=== PATIENT | female | born 1945 | race African-American/Black ===

== ENCOUNTER 2022-10-15 11:25 | Inpatient (IN) | payer OTHER ==
[2022-10-15 12:08] VITALS: BMI 34.3
[2022-10-15] MEDS ORDERED: ACETAMINOPHEN 500 MG TABLET (FP) PO ONE (13:04)
[2022-10-15] MEDS ORDERED: ACETAMINOPHEN 500 MG TABLET (FP) ONE (13:09)
[2022-10-15 13:17] LABS: HEMATOCRIT 24.3 % (32.4-45.2); HEMOGLOBIN 8.1 GM/dL (10.7-15.3); MCHC 33.5 g/dl (32.0-36.0); MEAN CELL VOLUME 98.6 fl (80-96); MEAN PLT VOLUME 8.1 fl (7.5-11.1); PLATELET COUNT 176 10^3/uL (134-434); RBC 2.46 M/mm3 (3.60-5.2); WHITE BLOOD COUNT 4.4 K/mm3 (4.0-10.0)
[2022-10-15] MEDS ORDERED: ACETAMINOPHEN 1000 MG/100 ML BAG IVPB ONE ×2 (13:20→18:57)
[2022-10-15 13:27] LABS: INR 0.97 (0.83-1.09); PROTHROMBIN TIME (PATIENT) 11.2 SEC (9.7-13.0)
[2022-10-15 13:29] LABS: ACTIVATED PTT 30.4 SECONDS (25.2-36.5)
[2022-10-15] MEDS ORDERED: ACETAMINOPHEN INJECTION 100 ML IVPB ONE ×2 (13:33→14:09)
[2022-10-15 13:42] LABS: BLOOD UREA NITROGEN 24.9 mg/dL (7-18); CALCIUM 8.2 mg/dL (8.5-10.1); MAGNESIUM 1.8 mg/dL (1.8-2.4)
[2022-10-15 13:45] LABS: CREATININE 3.4 mg/dL (0.55-1.3)
[2022-10-15 13:47] LABS: BILIRUBIN,TOTAL 0.4 mg/dL (0.2-1); TOT PROT 6.3 g/dl (6.4-8.2)
[2022-10-15] MEDS ORDERED: morphine CARPU-JECT 2 MG/1 ML DISP.SYRIN IVPUSH ONE (17:07)
[2022-10-15] MEDS ORDERED: NAPH,MB-DB/K PH,MBDB POWDER PACKET PO ONE (18:16)
[2022-10-15] MEDS ORDERED: NAPH,MB-DB/K PH,MBDB POWDER PACKET ONE (18:34)
[2022-10-15] MEDS ORDERED: INSULIN (LEVEMIR) 100 UNITS/ML UNITS SQ SCH (22:00)
[2022-10-15] MEDS ORDERED: APIXABAN 5 MG TABLET ONE (23:42)
[2022-10-15] MEDS ORDERED: ATORVASTATIN CA 40 MG TABLET (FP) ONE (23:42)
[2022-10-15] MEDS ORDERED: INSULIN (LEVEMIR) 100 UNITS/ML UNITS SQ ONE (23:43)
[2022-10-15] MEDS: INSULIN SLIDING SCALE (NOVOLOG) 1 VIAL SQ SCH (23:53)
[2022-10-15] MEDS: ATORVASTATIN CA 80 MG TABLET (FP) PO SCH (23:53)
[2022-10-16] MEDS ORDERED: ACETAMINOPHEN INJECTION 100 ML IVPB ONE (00:15)
[2022-10-16] MEDS: APIXABAN 5 MG TABLET PO SCH ×3 (00:40→22:22)
[2022-10-16 07:26] LABS: BASO % 0.8 % (0-2.0); EOS % 1.8 % (0-4.5); HEMOGLOBIN 8.6 GM/dL (10.7-15.3); LYMPH % 12.2 % (8-40); MCH 31.6 pg (25.7-33.7); MCHC 31.8 g/dl (32.0-36.0); MEAN CELL VOLUME 99.3 fl (80-96); MEAN PLT VOLUME 8.3 fl (7.5-11.1); MONO % 13.1 % (3.8-10.2); NEUT % 72.1 % (42.8-82.8); PLATELET COUNT 170 10^3/uL (134-434); RBC 2.72 M/mm3 (3.60-5.2); RDW 15.2 % (11.6-15.6); WHITE BLOOD COUNT 3.8 K/mm3 (4.0-10.0)
[2022-10-16 07:56] LABS: ALBUMIN 2.8 g/dl (3.4-5.0); BLOOD UREA NITROGEN 35.5 mg/dL (7-18); CALCIUM 7.9 mg/dL (8.5-10.1)
[2022-10-16 07:57] LABS: MAGNESIUM 1.8 mg/dL (1.8-2.4)
[2022-10-16 07:59] LABS: CREATININE 4.9 mg/dL (0.55-1.3); PHOSPHOROUS 4.4 mg/dL (2.5-4.9)
[2022-10-16 08:00] LABS: BILIRUBIN,TOTAL 0.4 mg/dL (0.2-1); TOT PROT 5.9 g/dl (6.4-8.2)
[2022-10-16] MEDS: INSULIN SLIDING SCALE (NOVOLOG) 1 VIAL SQ SCH ×4 (08:58→22:22)
[2022-10-16] MEDS ORDERED: ASPIRIN 81 MG CHEWABLE TABLETS ONE (09:47)
[2022-10-16] MEDS ORDERED: APIXABAN 5 MG TABLET ONE (09:47)
[2022-10-16] MEDS ORDERED: ASPIRIN 81 MG CHEWABLE TABLETS PO SCH (10:00)
[2022-10-16] MEDS ORDERED: ACETAMINOPHEN 1000 MG/100 ML BAG IVPB PRN (10:07)
[2022-10-16] MEDS ORDERED: ARIPiprazole 2 MG TABLET PO SCH (12:00)
[2022-10-16] MEDS ORDERED: ARIPiprazole 5 MG TABLET ONE (13:09)
[2022-10-16] MEDS: ARIPiprazole 2 MG TABLET PO SCH (13:15)
[2022-10-16] MEDS ORDERED: SODIUM CHLORIDE 250 ML IV PRN (15:24)
[2022-10-16] MEDS ORDERED: KETOROLAC TROMETHAMINE 15 MG/ML VIAL IVPUSH PRN (16:34)
[2022-10-16] MEDS ORDERED: INSULIN (LEVEMIR) 100 UNITS/ML UNITS SQ SCH (16:34)
[2022-10-16] MEDS ORDERED: oxyCODONE HCL 5 MG TABLET PO PRN (16:39)
[2022-10-16] MEDS: CALCIUM ACETATE 667 MG CAPSULE (FP) PO SCH (18:30)
[2022-10-16] MEDS ORDERED: DOCUSATE SODIUM 100 MG CAPSULE (FP) PO ONE (21:54)
[2022-10-16] MEDS ORDERED: APIXABAN 2.5 MG TABLET ONE (21:55)
[2022-10-16] MEDS ORDERED: TOPIRAMATE 25 MG TABLET ONE (21:55)
[2022-10-16] MEDS ORDERED: MIRTAZAPINE 15 MG TABLET (FP) ONE (21:55)
[2022-10-16] MEDS ORDERED: ATORVASTATIN CA 40 MG TABLET (FP) ONE (21:55)
[2022-10-16] MEDS: DOCUSATE SODIUM 100 MG CAPSULE (FP) PO SCH (22:22)
[2022-10-16] MEDS: ATORVASTATIN CA 80 MG TABLET (FP) PO SCH (22:22)
[2022-10-16] MEDS: OLANZapine 2.5 MG TABLET PO SCH (22:23)
[2022-10-16] MEDS: TOPIRAMATE 100 MG TABLET PO SCH (22:23)
[2022-10-16] MEDS: MIRTAZAPINE 15 MG TABLET (FP) PO SCH (22:23)
[2022-10-16] MEDS ORDERED: oxyCODONE HCL 5 MG TABLET ONE (22:27)
[2022-10-17] MEDS ORDERED: ACETAMINOPHEN INJECTION 100 ML IVPB ONE (03:14)
[2022-10-17] MEDS ORDERED: LEVOTHYROXINE NA 25 MCG TABLET (FP) ONE (05:54)
[2022-10-17] MEDS: LEVOTHYROXINE NA 125 MCG TABLET (FP) PO SCH (06:21)
[2022-10-17 07:05] LABS: BASO % 0.7 % (0-2.0); EOS % 1.3 % (0-4.5); HEMATOCRIT 24.8 % (32.4-45.2); HEMOGLOBIN 8.1 GM/dL (10.7-15.3); LYMPH % 14.7 % (8-40); MCH 32.3 pg (25.7-33.7); MCHC 32.8 g/dl (32.0-36.0); MEAN CELL VOLUME 98.6 fl (80-96); MEAN PLT VOLUME 8.5 fl (7.5-11.1); MONO % 13.2 % (3.8-10.2); NEUT % 70.1 % (42.8-82.8); PLATELET COUNT 142 10^3/uL (134-434); RBC 2.52 M/mm3 (3.60-5.2); RDW 15.3 % (11.6-15.6); WHITE BLOOD COUNT 4.7 K/mm3 (4.0-10.0)
[2022-10-17 07:21] LABS: ALBUMIN 2.4 g/dl (3.4-5.0); CALCIUM 7.5 mg/dL (8.5-10.1)
[2022-10-17 07:22] LABS: BLOOD UREA NITROGEN 47.4 mg/dL (7-18); MAGNESIUM 1.8 mg/dL (1.8-2.4)
[2022-10-17 07:24] LABS: CREATININE 6.4 mg/dL (0.55-1.3); PHOSPHOROUS 5.9 mg/dL (2.5-4.9)
[2022-10-17] MEDS: INSULIN SLIDING SCALE (NOVOLOG) 1 VIAL SQ SCH ×4 (07:25→22:35)
[2022-10-17 07:26] LABS: BILIRUBIN,TOTAL 0.3 mg/dL (0.2-1); TOT PROT 5.2 g/dl (6.4-8.2)
[2022-10-17] MEDS ORDERED: PANTOPRAZOLE 40 MG TABLET PO ONE (09:29)
[2022-10-17] MEDS ORDERED: TOPIRAMATE 25 MG TABLET ONE (09:30)
[2022-10-17] MEDS ORDERED: amLODIPine BESYLATE 5 MG TABLET (FP) ONE (09:30)
[2022-10-17] MEDS ORDERED: cefTRIAXone SODIUM 1 GM VIAL ONE (09:30)
[2022-10-17] MEDS ORDERED: DOCUSATE SODIUM 100 MG CAPSULE (FP) PO ONE (09:30)
[2022-10-17] MEDS ORDERED: APIXABAN 2.5 MG TABLET ONE (09:30)
[2022-10-17] MEDS ORDERED: ARIPiprazole 5 MG TABLET ONE (09:30)
[2022-10-17] MEDS: amLODIPine BESYLATE 5 MG TABLET (FP) PO SCH (09:39)
[2022-10-17] MEDS: APIXABAN 5 MG TABLET PO SCH ×2 (09:39→21:45)
[2022-10-17] MEDS: TOPIRAMATE 100 MG TABLET PO SCH ×2 (09:39→21:45)
[2022-10-17] MEDS: DOCUSATE SODIUM 100 MG CAPSULE (FP) PO SCH ×2 (09:39→21:47)
[2022-10-17] MEDS: ARIPiprazole 2 MG TABLET PO SCH (09:39)
[2022-10-17] MEDS: CALCIUM ACETATE 667 MG CAPSULE (FP) PO SCH ×2 (09:39→11:46)
[2022-10-17] MEDS: VITAMIN B COMP W-C 1 EA TABLET (NEPHRO-VITE) PO SCH (09:39)
[2022-10-17] MEDS: PANTOPRAZOLE 40 MG TABLET PO SCH (09:39)
[2022-10-17] MEDS: ATORVASTATIN CA 80 MG TABLET (FP) PO SCH (21:46)
[2022-10-17] MEDS: MIRTAZAPINE 15 MG TABLET (FP) PO SCH (21:47)
[2022-10-17] MEDS: OLANZapine 2.5 MG TABLET PO SCH (21:53)
[2022-10-17] MEDS ORDERED: ACETAMINOPHEN 325 MG TABLET (FP) PO ONE (22:03)
[2022-10-18] MEDS: INSULIN SLIDING SCALE (NOVOLOG) 1 VIAL SQ SCH ×4 (06:28→21:51)
[2022-10-18] MEDS: LEVOTHYROXINE NA 125 MCG TABLET (FP) PO SCH (06:28)
[2022-10-18 08:40] LABS: HEMOGLOBIN 7.9 GM/dL (10.7-15.3); MCH 32.5 pg (25.7-33.7); MCHC 33.1 g/dl (32.0-36.0); MEAN CELL VOLUME 98.2 fl (80-96); MEAN PLT VOLUME 9.9 fl (7.5-11.1); PLATELET COUNT 172 10^3/uL (134-434); RBC 2.44 M/mm3 (3.60-5.2); RDW 14.8 % (11.6-15.6)
[2022-10-18 08:58] LABS: WHITE BLOOD COUNT 7.9 K/mm3 (4.0-10.0)
[2022-10-18 09:04] LABS: ALBUMIN 2.4 g/dl (3.4-5.0); BLOOD UREA NITROGEN 24.3 mg/dL (7-18); CALCIUM 7.8 mg/dL (8.5-10.1)
[2022-10-18 09:07] LABS: CREATININE 4.1 mg/dL (0.55-1.3)
[2022-10-18 09:08] LABS: BILIRUBIN,TOTAL 0.4 mg/dL (0.2-1)
[2022-10-18 09:11] LABS: TOT PROT 5.4 g/dl (6.4-8.2)
[2022-10-18] MEDS: APIXABAN 5 MG TABLET PO SCH ×2 (09:43→21:41)
[2022-10-18] MEDS: DOCUSATE SODIUM 100 MG CAPSULE (FP) PO SCH ×2 (09:43→21:41)
[2022-10-18] MEDS: ARIPiprazole 2 MG TABLET PO SCH (09:44)
[2022-10-18] MEDS: CALCIUM ACETATE 667 MG CAPSULE (FP) PO SCH ×3 (09:45→17:04)
[2022-10-18] MEDS: PANTOPRAZOLE 40 MG TABLET PO SCH (09:45)
[2022-10-18] MEDS: TOPIRAMATE 100 MG TABLET PO SCH ×2 (09:45→21:43)
[2022-10-18] MEDS: amLODIPine BESYLATE 5 MG TABLET (FP) PO SCH (09:45)
[2022-10-18] MEDS: VITAMIN B COMP W-C 1 EA TABLET (NEPHRO-VITE) PO SCH (09:45)
[2022-10-18 10:53] LABS: ANISOCYTOSIS 0; HELMET CELLS 0; HOWELL-JOLLY BODIES 0; MACROCYTOSIS 0; OVALOCYTE 0; ROULEAU 0; SICKELED CELLS 0; TARGET CELLS 0; TEAR DROP CELLS 0; TOXIC GRANULATION 0
[2022-10-18] MEDS: MIDODRINE HCL 5 MG TABLET PO SCH (16:40)
[2022-10-18] MEDS ORDERED: ACETAMINOPHEN 1000 MG/100 ML BAG IVPB ONE (21:15)
[2022-10-18] MEDS ORDERED: traMADol HCL 50 MG TABLET PO ONE (21:16)
[2022-10-18] MEDS: ATORVASTATIN CA 80 MG TABLET (FP) PO SCH (21:41)
[2022-10-18] MEDS: MIRTAZAPINE 15 MG TABLET (FP) PO SCH (21:42)
[2022-10-18] MEDS: OLANZapine 2.5 MG TABLET PO SCH (21:43)
[2022-10-18] MEDS: ATORVASTATIN CA 40 MG TABLET (FP) PO SCH (21:52)
[2022-10-19] MEDS ORDERED: traMADol HCL 50 MG TABLET PO ONE ×2 (03:36→21:49)
[2022-10-19] MEDS: LEVOTHYROXINE NA 125 MCG TABLET (FP) PO SCH (06:39)
[2022-10-19] MEDS: INSULIN SLIDING SCALE (NOVOLOG) 1 VIAL SQ SCH ×4 (06:44→21:28)
[2022-10-19] MEDS: CALCIUM ACETATE 667 MG CAPSULE (FP) PO SCH ×4 (08:35→17:15)
[2022-10-19] MEDS: ARIPiprazole 2 MG TABLET PO SCH (09:36)
[2022-10-19] MEDS: VITAMIN B COMP W-C 1 EA TABLET (NEPHRO-VITE) PO SCH (09:36)
[2022-10-19] MEDS: PANTOPRAZOLE 40 MG TABLET PO SCH (09:36)
[2022-10-19] MEDS: DOCUSATE SODIUM 100 MG CAPSULE (FP) PO SCH ×2 (09:36→21:22)
[2022-10-19] MEDS: amLODIPine BESYLATE 5 MG TABLET (FP) PO SCH (09:36)
[2022-10-19] MEDS: APIXABAN 5 MG TABLET PO SCH ×2 (09:36→21:22)
[2022-10-19] MEDS: TOPIRAMATE 100 MG TABLET PO SCH ×2 (09:37→21:22)
[2022-10-19] MEDS ORDERED: SODIUM CHLORIDE 250 ML IV PRN (10:30)
[2022-10-19 10:57] LABS: BASO % 0.5 % (0-2.0); EOS % 1.9 % (0-4.5); HEMATOCRIT 25.8 % (32.4-45.2); HEMOGLOBIN 8.5 GM/dL (10.7-15.3); LYMPH % 15.1 % (8-40); MCH 32.3 pg (25.7-33.7); MCHC 32.8 g/dl (32.0-36.0); MEAN CELL VOLUME 98.7 fl (80-96); MEAN PLT VOLUME 9.3 fl (7.5-11.1); MONO % 8.4 % (3.8-10.2); NEUT % 74.1 % (42.8-82.8); PLATELET COUNT 161 10^3/uL (134-434); RBC 2.62 M/mm3 (3.60-5.2); WHITE BLOOD COUNT 4.7 K/mm3 (4.0-10.0)
[2022-10-19 11:21] LABS: ALBUMIN 2.5 g/dl (3.4-5.0); CALCIUM 7.7 mg/dL (8.5-10.1)
[2022-10-19 11:22] LABS: BLOOD UREA NITROGEN 38.6 mg/dL (7-18)
[2022-10-19 11:25] LABS: CREATININE 6.2 mg/dL (0.55-1.3)
[2022-10-19 11:26] LABS: BILIRUBIN,TOTAL 0.4 mg/dL (0.2-1); TOT PROT 5.7 g/dl (6.4-8.2)
[2022-10-19] MEDS: MIDODRINE HCL 5 MG TABLET PO SCH (12:51)
[2022-10-19] MEDS: ATORVASTATIN CA 40 MG TABLET (FP) PO SCH (21:21)
[2022-10-19] MEDS: MIRTAZAPINE 15 MG TABLET (FP) PO SCH (21:22)
[2022-10-19] MEDS: OLANZapine 2.5 MG TABLET PO SCH (21:22)
[2022-10-20] MEDS: LEVOTHYROXINE NA 125 MCG TABLET (FP) PO SCH (06:11)
[2022-10-20] MEDS: INSULIN SLIDING SCALE (NOVOLOG) 1 VIAL SQ SCH ×4 (06:11→22:23)
[2022-10-20] MEDS: CALCIUM ACETATE 667 MG CAPSULE (FP) PO SCH ×3 (08:30→17:55)
[2022-10-20] MEDS ORDERED: EPOETIN ALFA-EPBX 10,000 UNIT/ML VIAL SQ ONE (15:00)
[2022-10-20] MEDS: ALBUMIN HUMAN 25% 12.5 GM/50 ML VIAL IV SCH ×4 (15:30→17:00)
[2022-10-20 16:35] LABS: HEMATOCRIT 23.1 % (32.4-45.2); HEMOGLOBIN 7.6 GM/dL (10.7-15.3); MCH 32.1 pg (25.7-33.7); MCHC 32.9 g/dl (32.0-36.0); MEAN CELL VOLUME 97.5 fl (80-96); MEAN PLT VOLUME 9.7 fl (7.5-11.1); PLATELET COUNT 151 10^3/uL (134-434); RBC 2.37 M/mm3 (3.60-5.2); RDW 14.6 % (11.6-15.6); WHITE BLOOD COUNT 4.1 K/mm3 (4.0-10.0)
[2022-10-20 16:59] LABS: CALCIUM 7.4 mg/dL (8.5-10.1)
[2022-10-20 17:00] LABS: BLOOD UREA NITROGEN 50.6 mg/dL (7-18)
[2022-10-20 17:03] LABS: CREATININE 7.3 mg/dL (0.55-1.3)
[2022-10-20] MEDS: TOPIRAMATE 100 MG TABLET PO SCH ×2 (19:24→22:19)
[2022-10-20] MEDS: APIXABAN 5 MG TABLET PO SCH ×2 (19:24→22:18)
[2022-10-20] MEDS: ARIPiprazole 2 MG TABLET PO SCH (19:37)
[2022-10-20] MEDS: MIDODRINE HCL 5 MG TABLET PO SCH (19:37)
[2022-10-20] MEDS: amLODIPine BESYLATE 5 MG TABLET (FP) PO SCH (19:38)
[2022-10-20] MEDS: VITAMIN B COMP W-C 1 EA TABLET (NEPHRO-VITE) PO SCH (19:38)
[2022-10-20] MEDS: PANTOPRAZOLE 40 MG TABLET PO SCH (19:38)
[2022-10-20] MEDS: DOCUSATE SODIUM 100 MG CAPSULE (FP) PO SCH (19:39)
[2022-10-20] MEDS: traMADol HCL 50 MG TABLET PO PRN (20:42)
[2022-10-20] MEDS ORDERED: ATORVASTATIN CA 20 MG TABLET (FP) ONE (21:32)
[2022-10-20] MEDS: MIRTAZAPINE 15 MG TABLET (FP) PO SCH (22:19)
[2022-10-20] MEDS: ATORVASTATIN CA 40 MG TABLET (FP) PO SCH (22:19)
[2022-10-20] MEDS: OLANZapine 2.5 MG TABLET PO SCH (22:20)
[2022-10-21] MEDS: INSULIN SLIDING SCALE (NOVOLOG) 1 VIAL SQ SCH ×4 (06:07→22:15)
[2022-10-21] MEDS: traMADol HCL 50 MG TABLET PO PRN (06:07)
[2022-10-21] MEDS: LEVOTHYROXINE NA 125 MCG TABLET (FP) PO SCH (07:20)
[2022-10-21 08:37] LABS: BASO % 0.9 % (0-2.0); EOS % 2.5 % (0-4.5); HEMATOCRIT 25.1 % (32.4-45.2); HEMOGLOBIN 8.2 GM/dL (10.7-15.3); LYMPH % 20.7 % (8-40); MCH 32.1 pg (25.7-33.7); MCHC 32.7 g/dl (32.0-36.0); MEAN CELL VOLUME 98.3 fl (80-96); MEAN PLT VOLUME 9.6 fl (7.5-11.1); MONO % 10.2 % (3.8-10.2); NEUT % 65.7 % (42.8-82.8); PLATELET COUNT 165 10^3/uL (134-434); RBC 2.55 M/mm3 (3.60-5.2); RDW 14.8 % (11.6-15.6); WHITE BLOOD COUNT 3.6 K/mm3 (4.0-10.0)
[2022-10-21 08:45] LABS: ALBUMIN 2.3 g/dl (3.4-5.0); CALCIUM 7.7 mg/dL (8.5-10.1); MAGNESIUM 1.7 mg/dL (1.8-2.4)
[2022-10-21] MEDS: CALCIUM ACETATE 667 MG CAPSULE (FP) PO SCH ×3 (08:45→17:39)
[2022-10-21 08:46] LABS: BLOOD UREA NITROGEN 28.8 mg/dL (7-18)
[2022-10-21 08:48] LABS: CREATININE 3.9 mg/dL (0.55-1.3)
[2022-10-21 08:49] LABS: BILIRUBIN,TOTAL 0.4 mg/dL (0.2-1); TOT PROT 5.5 g/dl (6.4-8.2)
[2022-10-21] MEDS: TOPIRAMATE 100 MG TABLET PO SCH ×2 (10:38→22:10)
[2022-10-21] MEDS: APIXABAN 5 MG TABLET PO SCH ×2 (10:39→22:09)
[2022-10-21] MEDS: VITAMIN B COMP W-C 1 EA TABLET (NEPHRO-VITE) PO SCH (10:39)
[2022-10-21] MEDS: amLODIPine BESYLATE 5 MG TABLET (FP) PO SCH ×2 (10:39→10:53)
[2022-10-21] MEDS: PANTOPRAZOLE 40 MG TABLET PO SCH (10:39)
[2022-10-21] MEDS: ARIPiprazole 2 MG TABLET PO SCH (10:41)
[2022-10-21] MEDS ORDERED: oxyCODONE HCL 5 MG TABLET PO PRN (13:19)
[2022-10-21] MEDS ORDERED: MAGNESIUM OXIDE 400 MG TABLET (FP) PO ONE (14:10)
[2022-10-21] MEDS: MIDODRINE HCL 5 MG TABLET PO SCH (14:34)
[2022-10-21] MEDS: OLANZapine 2.5 MG TABLET PO SCH (22:09)
[2022-10-21] MEDS: MIRTAZAPINE 15 MG TABLET (FP) PO SCH (22:09)
[2022-10-21] MEDS: ATORVASTATIN CA 40 MG TABLET (FP) PO SCH (22:09)
[2022-10-22] MEDS: INSULIN SLIDING SCALE (NOVOLOG) 1 VIAL SQ SCH ×2 (06:08→11:29)
[2022-10-22] MEDS: LEVOTHYROXINE NA 125 MCG TABLET (FP) PO SCH (06:08)
[2022-10-22] MEDS ORDERED: SODIUM CHLORIDE 250 ML IV PRN (08:00)
[2022-10-22] MEDS ORDERED: EPOETIN ALFA-EPBX 10,000 UNIT/ML VIAL IVPUSH ONE (08:00)
[2022-10-22 08:55] VITALS: RESP 18
[2022-10-22 08:55] LABS: PHOSPHOROUS 3.3 mg/dL (2.5-4.9)
[2022-10-22] MEDS: PANTOPRAZOLE 40 MG TABLET PO SCH (09:24)
[2022-10-22] MEDS: VITAMIN B COMP W-C 1 EA TABLET (NEPHRO-VITE) PO SCH (09:24)
[2022-10-22] MEDS: APIXABAN 5 MG TABLET PO SCH (09:24)
[2022-10-22] MEDS: CALCIUM ACETATE 667 MG CAPSULE (FP) PO SCH ×2 (09:24→13:34)
[2022-10-22] MEDS: TOPIRAMATE 100 MG TABLET PO SCH (09:25)
[2022-10-22] MEDS: amLODIPine BESYLATE 5 MG TABLET (FP) PO SCH (09:25)
[2022-10-22] MEDS: ARIPiprazole 2 MG TABLET PO SCH (09:25)
[2022-10-22 09:55] LABS: HEMOGLOBIN 7.7 GM/dL (10.7-15.3); MCHC 33.6 g/dl (32.0-36.0); MEAN CELL VOLUME 98.1 fl (80-96); PLATELET COUNT 173 10^3/uL (134-434); RBC 2.34 M/mm3 (3.60-5.2); RDW 14.9 % (11.6-15.6); WHITE BLOOD COUNT 3.4 K/mm3 (4.0-10.0)
[2022-10-22 10:17] LABS: BLOOD UREA NITROGEN 40.6 mg/dL (7-18)
[2022-10-22 10:20] LABS: CREATININE 5.2 mg/dL (0.55-1.3)
[2022-10-22 15:27] VITALS: BP 132/56; PULSE 70; TEMP 98.7
== END 2022-10-22 15:50 | DRG 637 ==
LOC: JER 11:25 → JERBED 16:35 → OBSVTOIN 16:35 → J4W 10-17 18:53
PROVIDERS: ADMIT Internal Medicine; ATTEND Internal Medicine
PROC: 5A1D70Z Performance of Urinary Filtration, Intermittent, Less than 6 Hours Per Day (ICD-10-PCS; principal; 2022-10-22)
DX: E11.649 Type 2 diabetes mellitus with hypoglycemia without coma (principal); U07.1 COVID-19; I12.0 Hypertensive chronic kidney disease with stage 5 chronic kidney disease or end stage renal disease; G95.9 Disease of spinal cord, unspecified; R55 Syncope and collapse; N18.6 End stage renal disease; E11.22 Type 2 diabetes mellitus with diabetic chronic kidney disease; E03.9 Hypothyroidism, unspecified; E83.39 Other disorders of phosphorus metabolism; E78.5 Hyperlipidemia, unspecified; E04.9 Nontoxic goiter, unspecified; M17.12 Unilateral primary osteoarthritis, left knee; M47.9 Spondylosis, unspecified; Z99.2 Dependence on renal dialysis
CPT/HCPCS: 36415; 70450-TC; 71045-TC-FY; 72125-TC; 72131-TC; 72170-TC-FY; 73070-TC-LT-FY; 73090-TC-LT-FY; 73110-TC-LT-FY; 73110-TC-RT-FY; 73130-TC-LT-FY; 73130-TC-RT-FY; 73562-TC-LT-FY; 73562-TC-RT-FY; 80048; 80053; 82728; 82962; 83540; 83550; 83735; 84100; 84484; 85025; 85027; 85045; 85610; 85730; 86705; 86803; 87340; 87517; 93005; 93010; 93880-TC; 97116-GP; 99285-25; C9803-CS; Q5106; U0003; U0005